=== PATIENT | male | born 1990 | race Caucasian/White ===

== ENCOUNTER 2018-04-02 19:28 | Emergency (ER) | payer MEDICAID, OTHER ==
[2018-04-02] MEDS ORDERED: Lactated Ringer 1,000 ML IV ONE ×2 (20:04→20:05)
[2018-04-02 20:21] LABS: % BASOPHILS 0.1 % (0.0-2.0); % EOSINOPHILS 2.8 % (0.0-5.0); % LYMPHOCYTES 13.2 % (20.0-50.0); % MONOCYTES 6.1 % (2.0-10.0); % NEUTROPHILS 77.8 % (40.0-80.0); EOSINOPHILE ABSOLUTE 0.3 Th/cmm (0.1-0.4); HEMATOCRIT 38.3 % (41.0-60); HEMOGLOBIN 12.8 gm/dL (12-16); LYMPHOCYTE ABSOLUTE 1.3 Th/cmm (1.5-3.0); MEAN CELL VOLUME 85.1 fl (80-99); MEAN CORPUSCULAR HEMOGLOBIN 28.5 pg (26.0-30.0); MEAN CORPUSCULAR HGB CONC 33.5 pg (28.0-36.0); MEAN PLATELET VOLUME 7.8 fl; MONOCYTE ABSOLUTE 0.6 Th/cmm (0.3-1.0); NEUTROPHILE ABSOLUTE 7.3 Th/cmm (1.8-8.0); PLATELET COUNT 262 Th/cmm (150-400); RED CELL DISTRIBUTION WIDTH 12.5 % (11.5-20.0); WHITE BLOOD COUNT 9.5 Th/cmm (4.8-10.8)
[2018-04-02] MEDS ORDERED: Piperacillin Sodium/Tazobact 3.375 gm Vial IV ONE (20:31)
[2018-04-02 20:39] LABS: ALB/GLOB RATIO 1.1 (1.0-1.8); ALBUMIN 3.8 gm/dL (4.2-5.5); ALKALINE PHOSPHATASE 38 U/L (34-104); BILIRUBIN,TOTAL 0.3 mg/dL (0.3-1.0); BUN - UREA NITROGEN 9 mg/dL (7-25); CARBON DIOXIDE 26.6 mEq/L (21.0-31.0); CHLORIDE 101 mEq/L (98-107); CREATININE - SERUM 0.7 mg/dL (0.7-1.3); GFR AFRICAN-AMERICAN > 60.0 ml/min (>90); GFR NON AFRICAN-AMERICAN > 60.0 ml/min; GLUCOSE 135 mg/dL (70-105); POTASSIUM SERUM 3.6 mEq/L (3.5-5.1); SGOT 27 U/L (13-39); SGPT/ALT 23 U/L (7-52); SODIUM SERUM 137 mEq/L (136-145); TOTAL PROTEIN,SERUM 7.3 gm/dL (6.0-8.3)
--- NOTE | 2018-04-02 21:42 | ED Physician Chart ---
ED Chief Complaint/HPI - Patient Information Date Seen:: 04/02/18 Time Seen:: 19:34 Chief Complaint:: R hand infection History of Present Illness:: R hand infection s/p puncture wound to zone II 2 weeks ago. Tetanus up to date 2 months ago. Allergies:: Allergies Allergy/AdvReac Type Severity Reaction Status Date / Time No Known Allergies Allergy Verified 04/02/18 19:46 Vitals:: Vital Signs - 8 hr 04/02/18 19:34 Temp 98.4 F HR 103 RR 18 BP 140/83 O2 Sat % 98 Historian:: Patient Review:: Nurse's Note Reviewed ED Review of Systems - Review of Systems General/Constitutional: No fever, No chills, No weakness, No diaphoresis, Edema Skin: Other (R hand swelling and redness. Pus coming out of zone two wound which measures size of a quarter. All of Knavel's signs present. Lymphangitic streak going up arm. R axillary lymphadenopathy. NV intact. Large lip swelling without obvious abscess. Positive cervical lymph nodes. ) Head: No headache, No light-headedness Eyes: No loss of vision, No pain, No diplopia ENT: No earache, No nasal drainage, No sore throat, No tinnitus Neck: No neck pain, No swelling, No thyromegaly, No stiffness, No mass noted, Other (cervical lymphadenopathy) Cardio Vascular: No chest pain, No palpitations, No PND, No orthopnea, No edema Pulmonary: No SOB, No cough, No sputum, No wheezing GI: No nausea, No vomiting, No diarrhea, No pain, No melena, No hematochezia, No constipation, No hematemesis G/U: No dysuria, No frequency, No hematuria Musculoskeletal: No bone or joint pain, No back pain, No muscle pain Endocrine: No polyuria, No polydipsia Psychiatric: No prior psych history, No depression, No anxiety, No suicidal ideation Hematopoietic: No bruising, No lymphadenopathy Allergic/Immuno: No urticaria, No angioedema Neurological: No syncope, No focal symptoms, No weakness, No paresthesia, No headache, No seizure, No dizziness, No confusion, No vertigo ED Past Medical History - Past Medical History Obtainable: Yes Past Medical History: Other (ADHD) Family Medical History - Family Member Mother History Unknown: Yes ED Physical Exam - Physical Examination General/Constitutional: Awake, Well-developed, well-nourished, Alert, No distress Head: Atraumatic Eyes: Lids, conjuctiva normal, PERRL, EOMI Other Skin comments:: R hand swelling and redness. Pus coming out of zone two wound which measures size of a quarter. All of Knavel's signs present. Lymphangitic streak going up arm. R axillary lymphadenopathy. NV intact. Enlarged lower lip. Neck: Nontender, Full ROM w/o pain, No nuchal rigidity, No stridor Other Neck comments:: cervical lymphadenopathy. Respiratory: Nl effort/Exclusion, Clear to Auscultation, No Wheeze/Rhonchi/Rales Cardio Vascular: RRR, No murmur, gallop, rubs, NL S1 S2 Other Extremities comments:: R hand swelling and redness. Pus coming out of zone two wound which measures size of a quarter. All of Knavel's signs present. Lymphangitic streak going up arm. R axillary lymphadenopathy. NV intact. Neuro/Psych: Alert/oriented, Judgement/insight normal, Mood normal ED Labs/Radiology/EKG Results - Lab Results Results: Laboratory Tests 04/02/18 04/02/18 04/02/18 20:13 20:13 20:13 WBC 9.5 RBC 4.50 Hgb 12.8 Hct 38.3 L MCV 85.1 MCH 28.5 MCHC Differential 33.5 RDW 12.5 Plt Count 262 MPV 7.8 Neutrophils % 77.8 Lymphocytes % 13.2 L Monocytes % 6.1 Eosinophils % 2.8 Basophils % 0.1 ESR 40 H Sodium 137 Potassium 3.6 Chloride 101 Carbon Dioxide 26.6 Anion Gap 13.0 BUN 9 Creatinine 0.7 Est GFR ( Amer) > 60.0 Est GFR (Non-Af Amer) > 60.0 BUN/Creatinine Ratio 12.9 Glucose 135 H Whole Bld Lactic Acid Calcium 9.0 Magnesium 2.0 Total Bilirubin 0.3 AST 27 ALT 23 Alkaline Phosphatase 38 Total Protein 7.3 Albumin 3.8 L Globulin 3.5 Albumin/Globulin Ratio 1.1 04/02/18 20:13 WBC RBC Hgb Hct MCV MCH MCHC Differential RDW Plt Count MPV Neutrophils % Lymphocytes % Monocytes % Eosinophils % Basophils % ESR Sodium Potassium Chloride Carbon Dioxide Anion Gap BUN Creatinine Est GFR ( Amer) Est GFR (Non-Af Amer) BUN/Creatinine Ratio Glucose Whole Bld Lactic Acid 1.83 Calcium Magnesium Total Bilirubin AST ALT Alkaline Phosphatase Total Protein Albumin Globulin Albumin/Globulin Ratio ED Assessment - Assessment General Assessment: multiple phone calls made for hours to get an accepting facility. [facility] at ER and OR capacity. Closed to transfers. No hand surgeon coverage at [facility] or at [facility] accepted patient in transfer to Dr. Palomares of ER and Dr. Nettles of orthopedics. Assessment/Comments:: Patient needs a higher level of care transfer per EMTALA to a surgeon who can take this patient to the operating room with a limb-threatening and life- threatening problem for tenosynovitis. ED Septic Shock - . Is Septic Shock (SBP<90, OR Lactate>4 mmol\L) present?: No - <6hrs of presentation: Vital Signs: Vital Signs - 8 hr 04/02/18 19:34 Temp 98.4 F HR 103 RR 18 BP 140/83 O2 Sat % 98 ED Reassessment (Disposition) - Reassessment Reassessment Condition:: Unchanged - Diagnosis Diagnosis:: Right hand tenosynovitis. ADHD - Patient Disposition Discharge/Transfer:: Acute Care (other hosp) Condition at Disposition:: Stable, Unchanged
== END 2018-04-02 22:50 | disposition short-term general hospital (02) ==
LOC: ER 19:28
DX: M65.841 Other synovitis and tenosynovitis, right hand (principal); S61.431A Puncture wound without foreign body of right hand, initial encounter; L08.9 Local infection of the skin and subcutaneous tissue, unspecified; F90.9 Attention-deficit hyperactivity disorder, unspecified type; R59.0 Localized enlarged lymph nodes; X58.XXXA Exposure to other specified factors, initial encounter; Y93.89 Activity, other specified; Y92.89 Other specified places as the place of occurrence of the external cause; Y99.8 Other external cause status
CPT/HCPCS: 99285; 96366; 96368; 96372; 96375; 36415; 83605; 85025; 85652; 83735; 80053; 87040 ×2; J1885; J2543; J3370; J2930